=== PATIENT | male | born 1970 | race Caucasian/White ===

== ENCOUNTER 2017-04-15 13:04 | Day surgery (SDC) | payer OTHER ==
[~2017-04-15] VITALS: Ht 172.7 cm; Wt 76.0 kg
[~2017-04-15 13:04] MED LIST: 5-HY100C2 PO; ACYC400T2 PO; CYAN1TAB19 PO; LISI10TA PO; LOPE-147 PO; Sodium Chloride LOK Flush 10 mL Syringe IV PRN; [UNRECOGNIZED DRUG - CODE] PO; fentaNYL-PF 50 mCg/mL 2 mL Inj IVPUSH PRN
[2017-04-15 13:19] VITALS: BP 138/86; PULSE 87; RESP 16; O2SAT 98
[2017-04-15] MEDS ORDERED: 0.9% Sodium Chloride 1,000 ML IV ONE (13:34)
[2017-04-15 14:09] VITALS: BP 101/74; PULSE 78; RESP 16; O2SAT 96
[2017-04-15 14:19] VITALS: BP 112/76; PULSE 83; RESP 16; O2SAT 96
--- NOTE | 2017-04-16 05:11 | ENDO ---
[address] [address] ENDOSCOPY PROCEDURE PATIENT: LEON KAM : 1970 MR#: [id number] ADMIT: 04/15/2017 JOB ID: [id number] DATE OF SERVICE: 04/15/2017 PROCEDURE: Colonoscopy with biopsy. PREOPERATIVE DIAGNOSIS(ES): Diarrhea. POSTOPERATIVE DIAGNOSIS(ES): 1. A 2 mm cecal polyp, removed by cold biopsy forceps. 2. Mild patchy erythema seen in the sigmoid colon, status post biopsy. 3. Small internal hemorrhoids. ANESTHESIA: Fentanyl 100 mcg, Versed 6 mg IV administered. COMPLICATION: None. BLOOD LOSS: Minimal. DESCRIPTION OF PROCEDURE: After the risks and benefits were explained to the patient, informed consent was obtained. After anesthesia administered, colonoscope was inserted from the rectum to the terminal ileum. Mucosa carefully examined. Prep of the patient was excellent. After procedure was done, the scope was withdrawn and procedure terminated. FINDINGS: 1. Anus: No masses, hemorrhoids, ulcers, or fissures that were seen throughout the entire examination. There was patchy mild erythema seen in the sigmoid colon which could be secondary to his history of Campylobacter infection that he recently got treated, status post biopsy. There is also a 2 mm cecal polyp, removed by cold biopsy forceps. Biopsies taken at terminal ileum and random colon. Terminal ileum appeared normal. Retroflexion showed small internal hemorrhoids. 2. Patchy erythema in sigmoid colon most likely probably secondary from Campylobacter infection. He had recently stool infection campylobacter s/p biopsy. 3. Small internal hemorrhoids. RECOMMENDATION: Await pathology results. If tubular adenoma, then repeat colonoscopy in five years. [facility]
--- NOTE | 2017-04-20 16:57 | PATH ---
SURGICAL PATHOLOGY Attending Physician:Mras Fox MD CASE STATUS: Signed Out PATIENT NAME: LEON KAM PID: [id number] : 1970 DATE COLLECTED:04/15/2017 00:00 SPECIMEN: 1: Ileum, Biopsy 2: Colon, Biopsy 3: Colon, Biopsy 4: Colon, Biopsy CLINICAL HISTORY: 1. Terminal Ileum 2. Random Colon 3. Cecal Polyp 4. Sigmoid Erythema FINAL DIAGNOSIS: 1. Terminal Ileum, Biopsy: Portions of small intestinal mucosa with no diagnostic abnormality. Negative for active inflammation, dysplasia, or malignancy. 2. Random Colon Biopsies: Superficial portions of colorectal mucosa with occasional lymphoid aggregates and no diagnostic abnormality. Negative for active inflammation, granulomas, dysplasia, and malignancy. 3. Cecum, Polyp, Biopsy: Portion of tubular adenoma x1; negative for high-grade dysplasia. Superficial portion of colorectal mucosa x 1 with a prominent lymphoid aggregate and otherwise no significant histomorphologic abnormality. 4. Sigmoid Erythema, Biopsy: Superficial portions of colorectal mucosa with patchy, recent hemorrhage within the lamina propria and no diagnostic abnormality. Negative for active inflammation, ischemic changes, dysplasia, and malignancy. ICD10: K63.5 GROSS DESCRIPTION: The specimens are received in formalin, labeled with the patient's name, and sublabeled as the following: (1) terminal ileum; (2) random colon; (3) cecal polyp; (4) sigmoid erythema. (1) The specimen consists of multiple fragments of wall-white rubbery glistening semi-translucent tissue (0.6 x 0.3 x 0.1 cm in aggregate). Section code: (1A) tissue. Specimen entirely submitted. (2) The specimen consists of multiple fragments of wall-white rubbery glistening semi-translucent tissue (1.1 x 0.7 x 0.2 cm in aggregate). Section code: (2A) tissue. Specimen entirely submitted. (3) The specimen consists of a wall-white rubbery glistening semitranslucent sessile polyp (0.5 x 0.3 x 0.2 cm). Ink code: black-resection margin. Section code: (3A) polyp, bisected. Specimen entirely submitted. (4) The specimen consists of multiple fragments of wall-white rubbery glistening semi-translucent tissue (0.9 x 0.4 x 0.2 cm in aggregate). Section code: (3A) tissue. Specimen entirely submitted. 04/17/17 RUPINDER ICD-9 CODES: CPT CODES: 1: 08173 2: 88249 3: 75614 4: 54958 Electronically Signed Out Nona Mohr MD [facility]ly [facility] [address], [place] [address] Technical component performed at [facility], [facility] [address], [place], [address]
== END 2017-04-15 23:59 | disposition home or self-care (01) ==
LOC: END 13:04
PROVIDERS: ATTEND Internal Medicine Gastroenterology
DX: R19.7 Diarrhea, unspecified (principal); D12.0 Benign neoplasm of cecum; I10 Essential (primary) hypertension; K64.8 Other hemorrhoids
CPT/HCPCS: 45380; G0500; J7030